=== PATIENT | male | born 1990 | race Caucasian/White ===

== ENCOUNTER 2018-05-15 18:39 | Emergency (ER) | payer OTHER ==
[2018-05-15 18:52] VITALS: BP 124/74; PULSE 105; RESP 17; TEMP 99.4; O2SAT 100
--- NOTE | 2018-05-15 19:50 | C.PDOC ---
History Of Present Illness 27 year old male presents to the ED c/o generalized malaise, cough, congestion, subjective fever. Patient also c/o loose stool s for the past 4 days. Patient reports he used OTC Tylenol and cough medications with no relief. Patient states his roommate is sick with similar symptoms. Patient denies headache, nausea, vomit, rash, abdominal pain, recent travel, SOB, wheezing. Time Seen by Provider: 05/15/18 19:15 Chief Complaint (Nursing): Flu-like Symptoms History Per: Patient History/Exam Limitations: no limitations Onset/Duration Of Symptoms: Days Current Symptoms Are (Timing): Still Present Location Of Pain: Throat, Sinus/es, Diffuse Myalgias Sick Contacts (Context): Friend(s) Associated Symptoms: Fever, Cough, Sinus Drainage, Myalgias, Nasal Congestion, Diarrhea Ear Symptoms: Bilateral: None Recent travel outside of the [place]: No Additional History Per: Patient Past Medical History Reviewed: Historical Data, Nursing Documentation, Vital Signs Vital Signs: Last Vital Signs Temp 99.4 F 05/15/18 18:49 Pulse 105 H 05/15/18 18:49 Resp 17 05/15/18 18:49 BP 124/74 05/15/18 18:49 Pulse Ox 100 05/15/18 18:49 - Medical History PMH: No Chronic Diseases Surgical History: No Surg Hx Family History: States: Unknown Family Hx - Social History Hx Alcohol Use: Yes Hx Substance Use: No - Immunization History Hx Tetanus Toxoid Vaccination: No Hx Influenza Vaccination: Yes Hx Pneumococcal Vaccination: No Review Of Systems Constitutional: Positive for: Fever. Negative for: Chills ENT: Positive for: Nose Discharge, Nose Congestion. Negative for: Throat Pain Cardiovascular: Negative for: Chest Pain, Palpitations Respiratory: Positive for: Cough. Negative for: Shortness of Breath Gastrointestinal: Positive for: Diarrhea. Negative for: Nausea, Vomiting, Abdominal Pain Skin: Negative for: Rash Neurological: Negative for: Weakness, Numbness Physical Exam - Physical Exam Appears: Non-toxic, No Acute Distress Skin: Normal Color, Warm, Dry Head: Atraumatic, Normacephalic Eye(s): bilateral: Normal Inspection Ear(s): Bilateral: Normal Oral Mucosa: Moist Throat: Normal, No Erythema, No Exudate Neck: Normal ROM, Supple Chest: Symmetrical Cardiovascular: Rhythm Regular Respiratory: Normal Breath Sounds, No Rales, No Rhonchi, No Wheezing Gastrointestinal/Abdominal: Soft, No Tenderness Extremity: Normal ROM, No Tenderness, No Swelling Neurological/Psych: Oriented x3, Normal Speech, Normal Cognition Gait: Steady ED Course And Treatment O2 Sat by Pulse Oximetry: 100 (ON RA) Pulse Ox Interpretation: Normal Progress Note: In the ED patient remained in NAD, speaking in complete sentences, afebrile. Patient was prescribed couhg medications and advised to follow up with PMD for further evaluation. 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 - Scribe Statement The provider has reviewed the documentation as recorded by the Scribe Ganesh Purdy All medical record entries made by the Eleonoraibe were at my direction and personally dictated by me. I have reviewed the chart and agree that the record accurately reflects my personal performance of the history, physical exam, medical decision making, and the department course for this patient. I have also personally directed, reviewed, and agree with the discharge instructions and disposition.
== END 2018-05-15 19:53 | disposition home or self-care (01) ==
LOC: C.ER 18:39
DX: J11.1 Influenza due to unidentified influenza virus with other respiratory manifestations (principal)